=== PATIENT | male | born 1955 | race African-American/Black ===

== ENCOUNTER 2018-03-09 16:57 | Inpatient (IN) | payer MEDICARE, OTHER ==
[~2018-03-09] VITALS: Ht 177.8 cm; Wt 67.1 kg
--- NOTE | 2018-03-09 18:00 | NUR ---
NURSE NOTES: Patient admitted to unit. Patient is AOx4, stable with no s/s distress at this time. patient denies pain at this time. Patient is in good spirits with at bedside. Patient does not complain of SOB or difficulty breathing at this time. Skin is clean, dry, and intact. Patient was oriented to room and call light. Dr. Rosales told CN that he will input orders himself. Patient is sitting at bedside and call light within reach. Will continue to monitor.
--- NOTE | 2018-03-09 18:00 | NUR ---
CHARGE NURSE NOTE: Pt came as a direct admit. () in stable condition accompanied by pt's spouse. Unsteady gait noted. No signs of pain or sob. was paged for admission order.
[2018-03-09] MEDS ORDERED: LISINOPRIL40 MG ORAL (18:36)
[2018-03-09] MEDS ORDERED: ATORVASTATIN CA20 MG ORAL (18:36)
[2018-03-09] MEDS ORDERED: FUROSEMIDE20 M1 ORAL (18:36)
[2018-03-09] MEDS ORDERED: [UNRECOGNIZED DRUG - CODE] PO (18:36)
[2018-03-09] MEDS ORDERED: HUMALOG 75/255 UNIT1 SUBQ (18:36)
[2018-03-09] MEDS ORDERED: DOXAZOSIN MESYLA4 MG ORAL (18:36)
[2018-03-09] MEDS ORDERED: LANTUS SOL100 UNIT/1 SUBQ (18:36)
--- NOTE | 2018-03-09 19:30 | NUR ---
NURSE NOTES: Received report & pt from Sindhu Harry RN. Pt lying in bed, a&ox4, in room air, family member at bedside. No s/s of acute distress & no c/o pain. Med-recon done by AM shift. Will f/u with Dr. Rosales for admission orders. Skin intact. B/L swelling on thighs & lower abdomen. Patient belongings inventory signed & accounted for. Oriented to facility. Bed in lowest position, call light within reach. Will continue to monitor.
--- NOTE | 2018-03-09 19:31 | NUR ---
NURSE NOTES: Per pt, he came to Dr's office for high blood pressure & swelling. RN asked where the swelling is, pt states both legs & stomach area. RN unable to assess b/l thigh swelling since pt is wearing jeans & refused to be changed into hospital gown. RN only able to assess swelling in lower abdominal area.
[2018-03-09 20:00] VITALS: BP 151/86
[2018-03-09] MEDS ORDERED: Atorvastatin 20mg tab ORAL SCH ×2 (21:00→22:00)
[2018-03-09] MEDS ORDERED: NovoLOG Insulin Flexpen SUBQ SCH (21:00)
[2018-03-09 21:17] LABS: BASOPHILS % (AUTO) 1.5 % (0.0-2.0); EOSINOPHILS % (AUTO) 1.6 % (0.0-3.0); HEMOGLOBIN 10.1 G/DL (14.2-18.0); LYMPHOCYTES % (AUTO) 15.6 % (20.0-45.0); MEAN CORPUSCULAR VOLUME 92 FL (80-99); MONOCYTES % (AUTO) 10.8 % (1.0-10.0); NEUTROPHILS % (AUTO) 70.5 % (45.0-75.0); PLATELET COUNT 281 K/UL (150-450); RED BLOOD COUNT 3.37 M/UL (4.70-6.10); RED CELL DISTRIBUTION WIDTH 12.8 % (11.6-14.8); WHITE BLOOD COUNT 6.4 K/UL (4.8-10.8)
[2018-03-09 21:43] LABS: ALANINE AMINOTRANSFERASE 25 U/L (12-78); ALBUMIN/GLOBULIN RATIO 0.8 (1.0-2.7); ALKALINE PHOSPHATASE 88 U/L (46-116); ANION GAP 5 mmol/L (5-15); ASPARTATE AMINO TRANSFERASE 25 U/L (15-37); BILIRUBIN,TOTAL 0.6 MG/DL (0.2-1.0); BLOOD UREA NITROGEN 21 mg/dL (7-18); CALCIUM 8.7 MG/DL (8.5-10.1); CARBON DIOXIDE 31 MMOL/L (21-32); CHLORIDE 105 MMOL/L (98-107); CREATINE KINASE 336 U/L (26-308); CREATININE 1.8 MG/DL (0.55-1.30); POTASSIUM 4.1 MMOL/L (3.5-5.1); SODIUM 140 MMOL/L (136-145)
[2018-03-09] MEDS ORDERED: Doxazosin 4mg tab ORAL SCH (22:00)
[2018-03-09] MEDS: Levemir Flexpen SUBQ SCH (22:30)
[2018-03-09] MEDS: NovoLOG Insulin Flexpen SUBQ SCH (22:30)
[2018-03-10] VITALS: BP 158/76
--- NOTE | 2018-03-10 02:15 | Consultation ---
DATE OF CONSULTATION: 03/09/2018 CARDIOLOGY CONSULTATION CONSULTING PHYSICIAN: Tyler Rosales M.D. REQUESTING PHYSICIAN: Brian Mello M.D. REASON FOR CONSULTATION: Congestive heart failure. HISTORY OF PRESENT ILLNESS: This is a 62-year-old male with hypertensive heart disease, insulin-requiring diabetes mellitus, and chronic kidney disease. He was started on antihypertensives about 6 months ago after returning to my cardiovascular care with significant blood pressure elevation. He was initially placed on amlodipine and an KERI inhibitor. His blood pressure improved, but remains poorly controlled and edema developed. Ultimately, the amlodipine was discontinued at least 2 months ago and an alternate regimen which is presently in place was also started. The patient's blood pressure continued to remain elevated and more concerning was worsening edema. The patient claims to be compliant with his medications and his is quite involved with his care and attested that. The patient is admitted for management of his worsening edema suggesting heart failure and uncontrolled blood pressure. PAST MEDICAL HISTORY: Insulin-requiring diabetes mellitus, diabetic nephropathy with chronic kidney disease stage 2 to stage 3, diabetic neuropathy, diabetic microangiopathy, history of amputated toes, vitamin D deficiency, hypertensive heart disease, hyperlipidemia. ALLERGIES: None. FAMILY HISTORY: Not remarkable. SOCIAL HISTORY: Negative for smoking, alcohol, or substance abuse. MEDICATIONS: Medications prior to admission, reviewed and reconciled. REVIEW OF SYSTEMS: An outpatient echocardiogram revealed normal ejection fraction in August 2017 with diastolic relaxation abnormality and mild valvular regurgitation. He has been on increasing doses of insulin for control of his blood glucose. He sees Dr. Chaney for his foot care regularly. He has had significant ulcers and amputations over the past 10 years, none presently. There is no history of asthma. There is no history of abnormal blood clotting. There is no history of seizure or stroke. There is no known history of diabetes. He has had normal PSA in the last six months. PHYSICAL EXAMINATION: VITAL SIGNS: Afebrile, blood pressure 151/86, pulse 79, respirations 18, oxygen saturation 97% on room air. HEENT: Conjunctivae pink. Oropharynx clear. Mucous membranes moist. NECK: Supple. Jugular venous pressure normal. LUNGS: With diminished breath sounds. No wheezes or rales. CARDIAC: Regular rhythm and rate. Normal S1, S2 with a fourth heart sound. ABDOMEN: Soft, nontender. There is mild ascites. EXTREMITIES: Reveal amputations of some toes. There is 3+ edema to the thigh bilaterally. NEUROLOGIC: Reveals symmetric strength. SKIN: There is no open wound. LABORATORY DATA: White count 6.4, hemoglobin 10.1, MCV 92. Sodium 140, potassium 4.1, bicarbonate 31, BUN 29, creatinine 1.8, glucose 115. Pro-natriuretic peptide 260. Albumin 3. IMPRESSION: 1. Acute on chronic diastolic congestive heart failure, probable nephrotic syndrome. 2. Hypertensive heart disease with labile and malignant range blood pressure. 3. Insulin-requiring diabetes mellitus with complications. PLAN: 1. Diuresis. 2. Optimization of antihypertensive regimen. 3. Titration of insulin regimen. 4. Urine studies. 5. Venous duplex scan. 6. Check post-void residual. 7. Further recommendations will follow. Tyler Rosales M.D. DR: Jigar JOB#: [id number] CC:
[2018-03-10 04:00] VITALS: BP 159/71
[2018-03-10] MEDS: NovoLOG Insulin Flexpen SUBQ SCH ×4 (06:30→21:44)
--- NOTE | 2018-03-10 07:27 | NUR ---
HAND-OFF: Report given to Sophy RODRIGUES/Eddi RODRIGUES.
[2018-03-10 07:46] LABS: CREATININE 1.7 MG/DL (0.55-1.30)
[2018-03-10 08:00] VITALS: BP 181/83
--- NOTE | 2018-03-10 08:19 | NUR ---
NURSE NOTES: Received patient from Jacy RN, patient is resting bed comfortable, bed is locked and in lowest position, will continue to monitor.
[2018-03-10] MEDS ORDERED: Lisinopril 20mg tab ORAL SCH (09:00)
[2018-03-10] MEDS ORDERED: Doxazosin 4mg tab ORAL SCH ×2 (09:00)
[2018-03-10] MEDS ORDERED: Vitamin D 1000 IU Tab ORAL SCH (09:00)
--- NOTE | 2018-03-10 09:45 | History and Physical Report ---
DATE OF ADMISSION: 03/09/2018 CHIEF COMPLAINT: Hypertensive urgency, CHF exacerbation, and diabetes. HISTORY OF PRESENT ILLNESS: The patient is a pleasant 62-year-old male. He has a history of hypertensive heart disease, chronic kidney disease, diabetes, and diabetic nephropathy. He has a history of gangrene and right transmetatarsal amputation. 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 The patient recently was placed on an KERI inhibitor and Norvasc. He developed worsening edema. The amlodipine was discontinued, but the patient's edema persisted and his blood pressure remained uncontrolled and elevated. He is now admitted for further evaluation. PAST MEDICAL HISTORY: As above. PAST SURGICAL HISTORY: As above. CURRENT MEDICATIONS: Reconciled and reviewed. ALLERGIES: None. FAMILY HISTORY: None. SOCIAL HISTORY: Negative for tobacco, ethanol, or drugs. REVIEW OF SYSTEMS: GENERAL: No fevers or chills. HEENT: No headaches or visual changes. CARDIOPULMONARY: No chest pain or shortness of breath. Positive for edema. GASTROINTESTINAL: No nausea or vomiting. GENITOURINARY: No urgency or frequency. MUSCULOSKELETAL: No joint pain. Positive swelling. NEUROLOGIC: No evidence of seizures. PHYSICAL EXAMINATION: VITAL SIGNS: Temperature 98.3, pulse 87, respirations 18, and blood pressure 181/83. GENERAL: The patient is well developed, well nourished, no apparent distress. HEART: Regular rate and rhythm. LUNGS: Clear. ABDOMEN: Soft, nontender, and nondistended. EXTREMITIES: Without clubbing, cyanosis, or edema. LABORATORY DATA: The white count was 6, hemoglobin 10, hematocrit 31, and platelets of 281. Sodium 140, potassium 4.1, chloride 105, bicarb 31, BUN 21, and creatinine 1.8. The CK was 336. Natriuretic peptide level was 260. ASSESSMENT: This is a pleasant male, admitted with complaints of uncontrolled hypertension, generalized edema possibly secondary to CHF versus medication side effect, history of diabetes, and transmetatarsal amputation of the right foot. PLAN: Titrate antihypertensive regimen. Elevate legs. Cardiology evaluation. Monitor CK level. Cautious statin use. Brian Mello M.D. DR: BONILLA JOB#: [id number] CC:
[2018-03-10] MEDS: Lisinopril 20mg tab ORAL SCH (10:41)
[2018-03-10] MEDS: Vitamin D 1000 IU Tab ORAL SCH (10:41)
[2018-03-10] MEDS: Doxazosin 4mg tab ORAL SCH ×2 (10:42→18:05)
[2018-03-10 12:00] VITALS: BP 168/80
--- NOTE | 2018-03-10 13:38 | Diagnostic Imaging Report ---
Indication: Dyspnea Comparison: None 2 views of the chest obtained. Findings: There is prominence of the pulmonary interstitium which is nonspecific. Some degree of mild interstitial edema or pneumonitis not excluded. Heart is mildly enlarged. Bones are unremarkable. IMPRESSION: Interstitial prominence nonspecific. Mild interstitial edema or pneumonitis not excluded. Please correlate clinically
[2018-03-10 16:10] VITALS: BP 145/74
--- NOTE | 2018-03-10 19:40 | NUR ---
HAND-OFF: Report given to .Hand off report given to RAVI Jones.
--- NOTE | 2018-03-10 19:41 | NUR ---
HAND-OFF: Report given to nurse Jones .
--- NOTE | 2018-03-10 19:41 | NUR ---
NURSE NOTES:Patient received from Eddi Mariee PatientLamar/Lamar/OX4. Patient denies any pain at this time . no sob. no n/v noted . B/L swelling in thigh and lower abdomen . call light within reach . bed in low position at all times / will continue to monitor
[2018-03-10 20:00] VITALS: BP 150/72
[2018-03-10] MEDS: Levemir Flexpen SUBQ SCH (21:00)
[2018-03-10] MEDS: Atorvastatin 20mg tab ORAL SCH (21:42)
[2018-03-10] MEDS: Heparin 5000 units/ml inj SUBQ SCH (21:44)
[2018-03-11] VITALS: BP 148/77
--- NOTE | 2018-03-11 03:30 | Progress Note ---
DATE: 03/10/2018 CARDIOLOGY PROGRESS NOTE SUBJECTIVE: The patient notes some decrease in his leg swelling in the thigh region . He is not short of breath. He is anxious to go home. OBJECTIVE: VITAL SIGNS: Blood pressure earlier 181/83, now 145/74, heart rate 83, respiratory rate 19, no fevers. LUNGS: Clear. CARDIAC: Reveals regular rhythm and rate. Normal S1, S2 with a fourth heart sound. ABDOMEN: With mild ascites. EXTREMITIES: Still with 2+ dependent bilateral edema. NEUROLOGIC: Nonfocal. LABORATORY DATA: Labs from last evening were reviewed again. Postvoid residual is pending. IMPRESSION: 1. Acute on chronic diastolic congestive heart failure. 2. Malignant hypertension. 3. Nephrotic syndrome. 4. Chronic kidney disease. 5. Insulin-requiring diabetes mellitus. PLAN: 1. Continue diuresis. 2. Titration of antihypertensives. 3. Urine studies. 4. Titrate insulin as well. 5. Check postvoid residual. 6. Review chest radiograph. Tyler Rosales M.D. DR: BRADEN JOB#: [id number] CC:
[2018-03-11 04:00] VITALS: BP 145/78
[2018-03-11] MEDS: NovoLOG Insulin Flexpen SUBQ SCH ×4 (06:12→20:37)
--- NOTE | 2018-03-11 07:45 | NUR ---
HAND-OFF: Report given to Rinku hinkle R.N.
[2018-03-11 08:00] VITALS: BP 166/81
--- NOTE | 2018-03-11 08:06 | General Progress Note ---
Assessment/Plan Problem List: (1) Hypertension ICD Codes: I10 - Essential (primary) hypertension SNOMED: 00285792 (2) CKD (chronic kidney disease) stage 3, GFR 30-59 ml/min ICD Codes: N18.3 - Chronic kidney disease, stage 3 (moderate) SNOMED: 087583234 (3) CHF (congestive heart failure) ICD Codes: I50.9 - Heart failure, unspecified SNOMED: 47519102 Status: stable, progressing Assessment/Plan diuresis monitor renal fxn and labs BP rx elevate legs Subjective ROS Limited/Unobtainable: No Constitutional: Reports: malaise, weakness HEENT: Reports: no symptoms Cardiovascular: Reports: no symptoms, edema Respiratory: Reports: no symptoms Gastrointestinal/Abdominal: Reports: no symptoms Genitourinary: Reports: no symptoms Neurologic/Psychiatric: Reports: no symptoms Endocrine: Reports: no symptoms Hematologic/Lymphatic: Reports: no symptoms Allergies: Coded Allergies: NO KNOWN ALLERGIES (Verified Allergy, Unknown, 03/09/18) All Systems: reviewed and negative except above Subjective no events. w/o complaints. BP control is better. still has some swelling of the legs Objective Last 24 Hour Vital Signs Date Time Temp Pulse Resp B/P (MAP) Pulse Ox O2 Delivery O2 Flow Rate FiO2 03/10/18 21:00 Room Air 03/10/18 20:00 99.0 84 19 150/72 (98) 100 03/10/18 16:10 98.8 19 145/74 (97) 98 03/10/18 12:00 98.5 83 19 168/80 (109) 99 03/10/18 10:41 181/83 03/10/18 08:30 Room Air Intake and Output 03/10/18 03/11/18 19:00 07:00 Intake Total 800 ml 400 ml Balance 800 ml 400 ml Intake Oral 800 ml 400 ml Bladder Scan Volume Amount <10 ml # Voids 5 Height (Feet): 5 Height (Inches): 10.00 Weight (Pounds): 145 General Appearance: WD/WN, alert Neck: supple Cardiovascular: normal rate Respiratory/Chest: chest wall non-tender, lungs clear, normal breath sounds Abdomen: normal bowel sounds, non tender, soft, no organomegaly Edema: moderate edema 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 MD Mar 11, 2018 08:06
[2018-03-11] MEDS: Lisinopril 20mg tab ORAL SCH (09:07)
[2018-03-11] MEDS: Doxazosin 4mg tab ORAL SCH ×2 (09:08→17:18)
[2018-03-11] MEDS: Vitamin D 1000 IU Tab ORAL SCH (09:08)
[2018-03-11] MEDS: Heparin 5000 units/ml inj SUBQ SCH ×2 (09:17→20:36)
[2018-03-11 11:49] VITALS: BP 165/82
--- NOTE | 2018-03-11 12:42 | Diagnostic Imaging Report ---
APPROVED REPORT CPT Code: 05989 Present Symptoms Comments: Swelling BILATERAL: Imaging reveals a patent deep venous system bilaterally. There is no evidence of thrombus within the femoral, popliteal or tibial segments. The greater saphenous veins are also within normal limits. Doppler indicates normal spontaneous flow within these segments. INCIDENTAL FINDING: Enlarged lymph node noted near left groin area.
[2018-03-11 16:00] VITALS: BP 142/83
--- NOTE | 2018-03-11 16:58 | NUR ---
NURSE NOTES: RN LEFT MESSAGE FOR DR REILLY REGARDING ELEVATED BS 421 AND GIVEN 14 UNITS NOVOLOG PER PROTOCOL.
--- NOTE | 2018-03-11 18:45 | NUR ---
NURSE NOTES: NO CALL BACK FROM DR. REILLY. UPON REASSESSMENT, PT'S BS NOW 83. IN NO APPARENT DISTRESS AT THIS TIME.
--- NOTE | 2018-03-11 19:44 | NUR ---
HAND-OFF: Report given to Ari ARTEAGA RN.
--- NOTE | 2018-03-11 19:50 | NUR ---
NURSE NOTES: patient received. patient in no acute distress at this time. patient complains of no pain at this time. patietn awake alert and oriented x4. patient IV intact and asymptomatic. call light within reach. bed in lowest position and locked. bed alarm on will continue to monitor.
[2018-03-11 20:00] VITALS: BP 145/74
[2018-03-11] MEDS: Atorvastatin 20mg tab ORAL SCH (20:35)
[2018-03-11] MEDS: Levemir Flexpen SUBQ SCH (20:37)
--- NOTE | 2018-03-11 23:37 | NUR ---
NURSE NOTES: patients PVR was 279. he urinated a few minutes before i scanned him.
--- NOTE | 2018-03-11 23:50 | NUR ---
NURSE NOTEs i spoke with Dr. muro who has relayed that he has asked for PVR to be done several times to several different nurses and it was not done. I was asked to do the PVR and make an incident report. incident report made.
[2018-03-12] VITALS: BP 145/77
--- NOTE | 2018-03-12 01:00 | Progress Note ---
DATE: 03/11/2018 CARDIOLOGY PROGRESS NOTE SUBJECTIVE: The patient has no shortness of breath. His leg swelling is better. He is anxious to go home. OBJECTIVE: VITAL SIGNS: Blood pressure 145/74 to 165/82, heart rate 76, respiratory rate 18, afebrile, room air oxygen saturation 98%. GENERAL: Exam is unchanged with the exception of decreased edema of the lower extremities, now only to the calf and no increase in abdominal girth. IMPRESSION: 1. Hypertensive heart disease with malignant-range blood pressure, better. 2. Insulin-requiring diabetes mellitus with labile blood glucose. 3. Acute on chronic diastolic congestive heart failure. 4. Peripheral artery disease. 5. Chronic kidney disease with nephrotic syndrome. PLAN: 1. Recheck laboratory studies. 2. Continue diuresis. 3. Titrate cardiovascular regimen as well as insulin. 4. Discharge planning. Tyler Rosales M.D. DR: Jigar JOB#: [id number] CC:
[2018-03-12 04:00] VITALS: BP 171/83
[2018-03-12] MEDS: NovoLOG Insulin Flexpen SUBQ SCH (05:49)
--- NOTE | 2018-03-12 07:13 | NUR ---
HAND-OFF: Report given to RAVI greenfield.
[2018-03-12 07:57] LABS: ANION GAP 7 mmol/L (5-15); BLOOD UREA NITROGEN 37 mg/dL (7-18); CALCIUM 8.7 MG/DL (8.5-10.1); CARBON DIOXIDE 31 MMOL/L (21-32); CHLORIDE 101 MMOL/L (98-107); POTASSIUM 4.5 MMOL/L (3.5-5.1); SODIUM 139 MMOL/L (136-145)
[2018-03-12 08:00] VITALS: BP 118/73
--- NOTE | 2018-03-12 08:15 | NUR ---
NURSE NOTES: Report received from outgoing RN, rounds made. Patient alert, oriented x4, calm, family member at bedside. RFA heplock intact. Vitals stable, no complains of pain/NV/SOB. Appetite good with breakfast. Discharge planning. Call light in reach. Will continue to monitor.
--- NOTE | 2018-03-12 08:18 | General Progress Note ---
Assessment/Plan Problem List: (1) Hypertension ICD Codes: I10 - Essential (primary) hypertension SNOMED: [id number] (2) CKD (chronic kidney disease) stage 3, GFR 30-59 ml/min ICD Codes: N18.3 - Chronic kidney disease, stage 3 (moderate) SNOMED: 541218771 (3) CHF (congestive heart failure) ICD Codes: I50.9 - Heart failure, unspecified SNOMED: 98295604 Status: stable, progressing Assessment/Plan diuresis- switch to po monitor renal fxn and labs BP rx elevate legs dc planning Subjective ROS Limited/Unobtainable: No Constitutional: Reports: malaise, weakness HEENT: Reports: no symptoms Cardiovascular: Reports: edema Respiratory: Reports: no symptoms Gastrointestinal/Abdominal: Reports: no symptoms Genitourinary: Reports: no symptoms Neurologic/Psychiatric: Reports: no symptoms Endocrine: Reports: no symptoms Hematologic/Lymphatic: Reports: no symptoms Allergies: Coded Allergies: NO KNOWN ALLERGIES (Verified Allergy, Unknown, 03/09/18) All Systems: reviewed and negative except above Subjective no events. w/o complaints. BP control is better. still has some swelling of the legs. Cr trending up Objective Last 24 Hour Vital Signs Date Time Temp Pulse Resp B/P (MAP) Pulse Ox O2 Delivery O2 Flow Rate FiO2 03/12/18 04:00 98.5 73 18 171/83 (112) 100 03/12/18 00:00 98.6 75 18 145/77 (99) 100 03/11/18 21:00 Room Air 03/11/18 20:00 98.7 83 18 145/74 (97) 99 03/11/18 16:00 98.5 79 21 142/83 (102) 97 03/11/18 11:49 98.7 76 21 165/82 (109) 99 03/11/18 09:07 166/81 03/11/18 09:00 Room Air Intake and Output 03/11/18 03/12/18 19:00 07:00 # Voids 3 Laboratory Tests 03/12/18 06:00: Sodium Level 139, Potassium Level 4.5, Chloride Level 101, Carbon Dioxide Level 31, Anion Gap 7, Blood Urea Nitrogen 37H, Creatinine 2.0H, Estimat Glomerular Filtration Rate 41.1, Glucose Level 125H, Calcium Level 8.7, Magnesium Level 1.7L, Pro-B-Type Natriuretic Peptide [Pending] Height (Feet): 5 Height (Inches): 10.00 Weight (Pounds): 148 Objective General Appearance: WD/WN, alert Neck: supple Cardiovascular: normal rate Respiratory/Chest: chest wall non-tender, lungs clear, normal breath sounds Abdomen: normal bowel sounds, non tender, soft, no organomegaly Edema: moderate edema Neurologic: [employer] II-XII grossly normal, no motor/sensory deficits, alert, oriented x 3, responsive Brian Mello MD Mar 12, 2018 08:18
[2018-03-12] MEDS ORDERED: DOXAZOSIN MESYLA4 MG ORAL (08:22)
[2018-03-12] MEDS ORDERED: FUROSEMIDE40 MG ORAL (08:22)
[2018-03-12] MEDS: Doxazosin 4mg tab ORAL SCH (08:39)
[2018-03-12] MEDS: Vitamin D 1000 IU Tab ORAL SCH (08:39)
[2018-03-12 08:40] VITALS: BP 118/73
[2018-03-12] MEDS: Lisinopril 20mg tab ORAL SCH (08:40)
[2018-03-12] MEDS: Heparin 5000 units/ml inj SUBQ SCH (08:41)
[2018-03-12] MEDS ORDERED: Furosemide 40mg tab ORAL SCH (09:00)
--- NOTE | 2018-03-12 09:40 | NUR ---
CASE MANAGEMENT:REVIEW 03/09/18.......DIRECT ADMIT FROM HOME 03/10/18 SI: AC/CHR CHF. MALIGNANT HTN BP~181/83 CR+1.7 GLUCOSE+115 TCK+336 IS: LASIX PO QD LISINOPRIL PO QD CARDURA PO QD SS INSULIN AC+HS : TO TELEMETRY INTERQUAL CRITERIA MET
--- NOTE | 2018-03-12 09:52 | NUR ---
DISCHARGE PLANNING PATIENT WILL RETURN HOME TODAY CLINICALS FAXED TO [facility] T: [phone] F: [phone]
--- NOTE | 2018-03-12 10:05 | NUR ---
NURSE NOTES: Discharge instructions reviewed with patient and family member, verbalized understanding. RFA IV heplock discontinued. Patient discharged home with home health services. Family member transported patient home with all belongings and prescriptions.
--- NOTE | 2018-03-12 10:44 | NUR ---
NURSE NOTES: RN notified CM regarding that pt has been in service with [facility] [phone]) per Berta DAVIS HH has been arrange and will start care tomorrow 03/13/18. I will f/u as needed.
--- NOTE | 2018-03-12 23:45 | Progress Note ---
DATE: 03/12/2018 CARDIOLOGY PROGRESS NOTE SUBJECTIVE: The patient feels better. Less short of breath. No nausea or vomiting. Swelling almost resolved. OBJECTIVE: VITAL SIGNS: Blood pressure 118/73, pulse 82, respirations 19, and afebrile. Oxygen saturation 97 to 100% on room air. Stool occult blood negative. LUNGS: Clear. CARDIAC: Regular. Normal S1, S2 with a fourth heart sound. ABDOMEN: Soft and nontender. No ascites. EXTREMITIES: Trace ankle edema to the calf. IMPRESSION: 1. Acute on chronic diastolic congestive heart failure, now clinically compensated. 2. Venous insufficiency, improved. 3. Chronic kidney disease with nephrotic syndrome contributing to edema. 4. Hypertensive heart disease with good blood pressure control on current regimen. Suspect some component of noncompliance at home prior to admission. 5. Insulin-requiring diabetes mellitus, labile. PLAN: 1. Transition from IV to oral diuretics. 2. Maintain current antihypertensive regimen and stressed compliance at home. Same for insulin dosing. 3. Discharge planning. Tyler Rosales M.D. DR: VIOLETTE JOB#: [id number] CC:
--- NOTE | 2018-03-13 13:50 | Discharge Summary ---
Discharge Summary Discharge Summary _ DATE OF ADMISSION: 03/09/2018 DATE OF DISCHARGE: 03/12/2018 DISCHARGED BY: Dr. Brian Mello FLOOR PLAN ADJUSTER: Dr. Tyler Rosales BRIEF HOSPITAL COURSE: Patient is a 62-year-old male, with history of hypertensive heart disease, chronic kidney disease, diabetes with diabetic nephropathy. He has history of gangrene and right transmetatarsal amputation. 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 Patient was recently placed on an KERI inhibitor and Norvasc. He developed worsening edema. The amlodipine was discontinued, but the patient's edema persisted and his blood pressure remained uncontrolled and elevated. He was then admitted for further evaluation. Local Intermodal Truck Driver was consulted. Patient had BNP of 268. Patient with acute on chronic diastolic congestive heart failure. He was given IV diuresis. He was continued on Lipitor, he was given Cardura and lisinopril. There was consideration for nephrotic syndrome. Urine study showed 24 hour urine clearance 774. Creatinine clearance of 25. Kidney function was monitored. He had swelling of lower extremities. Venous duplex of lower extremity was negative for DVT, there was an incidental finding of an enlarged lymph node near the left groin area. Chest x-ray showed interstitial prominence. Patient has diabetes mellitus. Blood glucose was monitored. He was placed on NovoLog sliding scale. IV diuretics was transitioned p.o. She was continued on antihypertensive regimen. Stress compliance of taking medications at home. She was eventually cleared for discharge home. FINAL DIAGNOSES: Acute on chronic diastolic congestive heart failure Venous insufficiency/peripheral artery disease Chronic kidney disease stage 3 with nephrotic syndrome contributing to edema Hypertensive heart disease Insulin requiring diabetes mellitus Hypertension DISPOSITION: Patient was discharged home. DISCHARGE MEDICATIONS: Refer to Discharge Medication List. DISCHARGE INSTRUCTIONS: Follow-up in a week. I have been assigned to dictate discharge summary on this account, and I was not involved in the patient's management. Suzanna Sosa NP Mar 13, 2018 13:50
== END 2018-03-12 10:00 | disposition home health service (06) | DRG 291 ==
LOC: 3E 17:23
DX: I13.0 Hypertensive heart and chronic kidney disease with heart failure and stage 1 through stage 4 chronic kidney disease, or unspecified chronic kidney disease (principal); I50.33 Acute on chronic diastolic (congestive) heart failure; E11.22 Type 2 diabetes mellitus with diabetic chronic kidney disease; N18.3 Chronic kidney disease, stage 3 (moderate); I16.0 Hypertensive urgency; I73.9 Peripheral vascular disease, unspecified; E11.21 Type 2 diabetes mellitus with diabetic nephropathy; Z79.4 Long term (current) use of insulin; Z89.431 Acquired absence of right foot
CPT/HCPCS: 36415; 71046; 80048; 80053; 82270; 82550; 82575; 82962; 83735; 83880; 84550; 85025; 93970; J1815; S5561